=== PATIENT | male | born 1985 | race Caucasian/White ===

== ENCOUNTER → 2023-03-30 | Outpatient (CLI) | payer OTHER ==
--- NOTE | 2023-03-30 08:55 | Diagnostic Imaging Report ---
EXAMINATION: Magnetic resonance imaging of the right knee without intravenous contrast. DATE: March 30, 2023. COMPARISON: None. INDICATION: 37-year-old male, right knee pain. Hyperextension injury in March 2023. TECHNIQUE: Multiplanar, multisequence noncontrast enhanced MR imaging was accomplished. FINDINGS: There are some motion limitations of the exam. MENISCI: The medial meniscus is intact. The lateral meniscus is intact. LIGAMENTS AND TENDONS: The anterior and posterior cruciate ligaments are intact. The medial collateral ligament is intact. The iliotibial band, mid third lateral capsular ligament, fibular collateral ligament, biceps femoris tendon, and conjoined tendon are intact. The quadriceps tendon and patella ligament are intact. JOINT: The articular cartilage surfaces are intact. There is no knee joint effusion, prominent synovitis, or intra-articular body. BONE: There is edema-like signal in the anterior aspect of the lateral tibial plateau. There is no identified fracture line. The additional bone marrow signal is unremarkable. BURSAE AND SOFT TISSUES: There is a very small slit-like Benson's cyst which is partially ruptured. IMPRESSION: 1. Intact menisci and cruciate ligaments. Additional ligaments and tendons are intact. 2. Bone contusion of the anterior aspect of the lateral tibial plateau. No acute fracture. 3. Intact articular cartilage. No knee joint effusion. 4. Small slit-like partially ruptured Benson's cyst. Dictated by: Dictated on workstation # [id number]
== END ==
LOC: RAD 07:28
PROVIDERS: ATTEND Nurse Practitioner Family
DX: M71.21 Synovial cyst of popliteal space [Baker], right knee (principal); S83.8X1A Sprain of other specified parts of right knee, initial encounter
CPT/HCPCS: 73721